=== PATIENT | male | born 1970 | race Caucasian/White ===

== ENCOUNTER → 2021-02-22 | Outpatient (CLI) | payer OTHER | LOC: SJCVCIMAG 06:55 | PROVIDERS: ATTEND Internal Medicine | DX: I08.1 Rheumatic disorders of both mitral and tricuspid valves (principal); R00.0 Tachycardia, unspecified; I49.3 Ventricular premature depolarization; I45.10 Unspecified right bundle-branch block; R06.00 Dyspnea, unspecified; R53.83 Other fatigue; E78.5 Hyperlipidemia, unspecified; Z79.899 Other long term (current) drug therapy ==

== ENCOUNTER → 2021-03-05 | Outpatient (CLI) | payer OTHER ==
[~2021-03-05] VITALS: Ht 182.9 cm; Wt 74.8 kg
[~2021-03-05] MED LIST: ACETAMINOPHEN500 M1 PO; CRESTOR10 MG PO; IBUPROFEN 800800 M1 PO; NITROSTAT0.4 M1 SUBLING
[2021-03-05 10:11] VITALS: BP 123/87
[2021-03-05 10:28] LABS: HEMATOCRIT 43.8 % (42.0-52.0); HEMOGLOBIN 14.9 gm/dL (14.0-18.0); MCH 30.7 pg (26.0-34.0); MCV 90.4 fL (80.0-100.0); RBC 4.85 mil/uL (4.50-6.00); RDW 13.3 % (10.5-14.5); WBC 4.7 thou/uL (4.0-11.0)
[2021-03-05 10:35] LABS: CALCIUM 8.9 mg/dL (8.5-10.1); CREATININE 1.1 mg/dL (0.7-1.3); POTASSIUM 4.5 mmol/L (3.5-5.1)
--- NOTE | 2021-03-05 13:23 | EKG ---
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
--- NOTE | 2021-03-11 15:10 | CATHLAB ---
[facility] [place] [address] INVASIVE PROCEDURE REPORT Name: JYOTHI CANELA Room #: REG CRISTIAN Raymond#: [id number] Admission: 03/05/21 Attend Phys: Trevor Jimenes Discharge: Date of : 74 Report #: [id number] THIS REPORT FOR: cc: Db Almazan Michael DO Lammoglia, Francisco J. 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 A PINNACLE 4FR Sheath #[id number] sheath was inserted into the RFA 4F^. Coronary angiography was performed using coronary diagnostic catheters. The right coronary system was accessed and visualized with a JR4 catheter. The left coronary system was accessed and visualized with a JL5 catheter. The left ventricle was accessed and visualized with a PIGTAIL catheter. Hemostasis was obtained with manual pressure following sheath removal without any complications. The patient tolerated the procedure well and there were no complications associated with the procedure. There was no hematoma. Intraoperative Conscious Sedation Versed 2 mg [facility] [address] [place] [address] INVASIVE PROCEDURE REPORT Name: JYOTHI CANELA Room #: REG DIVINA Andrade#: [id number] Admission: 03/05/21 Attend Phys: Trevor Walker Discharge: Date of : 74 Report #: [id number] Fluoro Time: 3.60 minutes Dose: DAP 3948.70 cGycm2 Contrast Type and Amount: Omnipaque 48 ml Coronary Angiography The patient's coronary anatomy is right dominant. Diagnostic Cath Left Main Large caliber vessel normal origin trifurcates left into descending left circumflex and small caliber ramus intermedius. Left main is free of high-grade disease LAD Moderate caliber type II vessel which courses in the anterior interventricular sulcus giving rise to several diagonal branches. It then terminates at the apex is a small bifurcating branch. The first diagonal branch is a small to moderate caliber bifurcating vessel coursing on the anterolateral aspect of the heart without significant high-grade lesions. Diagonal 1 Small to moderate caliber bifurcating vessel without significant stenosis Circumflex Moderate caliber nondominant vessel which courses in the AV groove posteriorly giving rise to a bifurcating marginal branch. There is no significant high-grade lesions noted only luminal irregularities present OM1 Moderate caliber vessel without significant high-grade lesions noted Right Coronary Large-caliber dominant vessel coursing in the AV groove giving rise to small RV and RA branches. Then at the crux of the heart gives us a posterior descending artery. The RCA proper then continues on giving us a small posterior wall branch and a posterolateral branch all of which are free of high-grade disease and only luminal irregularities are noted R PDA Moderate caliber vessel without significant high-grade lesions present Ramus Diminutive size vessel without significant stenosis Left Ventriculography Left Ventriculography was not performed. Hemodynamics The aortic pressure is 110/71 mmHg with a mean of 83 mmHg. The left ventricular pressure is 117/3 mmHg with a mean of mmHg. The left ventricular end diastolic pressure is 14 mmHg. Conclusion 1. Essentially normal coronary arteries with only luminal irregularities present [facility] [address] [place] [address] INVASIVE PROCEDURE REPORT Name: JYOTHI CANELA Room #: REG CL Tomas#: [id number] Admission: 03/05/21 Attend Phys: Trevor Walker Discharge: Date of : 74 Report #: [id number] 2. Normal hemodynamics Recommendations Cardiac Risk Reduction Program <ELECTRONICALLY SIGNED> By: Trevor Jimenes MD 03/11/21 1509 1509 1509 Trevor Jimenes MD /INF
== END | disposition home or self-care (01) ==
LOC: CATH 08:30
PROVIDERS: ATTEND Internal Medicine
DX: R94.39 Abnormal result of other cardiovascular function study (principal); R07.9 Chest pain, unspecified; E78.00 Pure hypercholesterolemia, unspecified; F17.220 Nicotine dependence, chewing tobacco, uncomplicated; Z98.890 Other specified postprocedural states; Z79.899 Other long term (current) drug therapy